=== PATIENT | male | born 1955 | race Caucasian/White ===

== ENCOUNTER 2018-02-16 14:04 | Inpatient (IN) | payer MEDICAID, OTHER ==
[~2018-02-16] VITALS: Ht 165.1 cm; Wt 73.0 kg
[2018-02-16 14:50] VITALS: BP 150/79; PULSE 66; RESP 16; TEMP 97.9; O2SAT 100
[2018-02-16] MEDS ORDERED: SODIUM CHLOR 0.9% 1000 ML INJ 1,000 ML IV ONE (15:00)
[2018-02-16 15:14] LABS: AUTOMATED NEUTROPHIL # 3.5 TH/MM3 (1.8-7.7); BASOPHIL % 0.8 % (0.0-2.0); EOSINOPHIL % 0.8 % (0.0-4.0); HEMATOCRIT 40.3 % (39.0-51.0); HEMOGLOBIN 13.8 GM/DL (13.0-17.0); LYMPH % 27.2 % (9.0-44.0); LYMPHOCYTE # 1.5 TH/MM3 (1.0-4.8); MEAN CORPUSCULAR HEMOGLOBIN 30.8 PG (27.0-34.0); MEAN CORPUSCULAR HGB CONC 34.3 % (32.0-36.0); MEAN PLATELET VOLUME 10.3 FL (7.0-11.0); MONO % 7.3 % (0.0-8.0); MONOCYTE # 0.4 TH/MM3 (0-0.9); NEUT % 63.9 % (16.0-70.0); PLATELET COUNT 181 TH/MM3 (150-450); RED BLOOD COUNT 4.48 MIL/MM3 (4.50-5.90); RED CELL DISTRIBUTION WIDTH 12.8 % (11.6-17.2); WHITE BLOOD COUNT 5.5 TH/MM3 (4.0-11.0)
[2018-02-16 15:38] LABS: PROTHROMBIN TIME - PATIENT 29.8 SEC (9.8-11.6)
[2018-02-16 15:53] LABS: BICARBONATE 24.1 MEQ/L (21.0-32.0); CREATININE 0.83 MG/DL (0.60-1.30)
[2018-02-16 16:11] LABS: TOTAL PROTEIN 6.5 GM/DL (6.4-8.2)
[2018-02-16 16:19] LABS: CALCIUM-PROTEIN CORRECTED 7.3 MG/DL (8.5-10.1)
[2018-02-16 16:55] VITALS: BP 158/81; PULSE 71; RESP 16; O2SAT 99
--- NOTE | 2018-02-16 16:58 | PD ---
HPI Chief Complaint: Syncope/Near-Syncope Time Seen by Provider: 14:24 Travel History International Travel<30 days: No Contact w/Intl Traveler<30days: No Traveled to known affect area: No History of Present Illness HPI This is a 63-year-old male with a history of mitral valve replacement, who presents via EMS after having a syncopal episode. Patient states that he has been taking extra magnesium supplements over the last several days. He states however while he has been taking magnesium he has noticed his blood sugars dropping. He denies being on any blood sugar medicine. He states that he was supplementing his low blood sugars with honey and juice. The patient states that while he was at the [facility] he started feeling extremely weak and then he passed out. There are no other complaints at time of my examination. [facility] Past Medical History Cardiac Catheterization: Yes Past Surgical History Coronary Artery Bypass Graft: Yes Genitourinary Surgery: Yes (TESTICAL SURGERY) Tonsillectomy: Yes Valve Replacement: Yes (MITRAL VALVE PROLASPE) Other Surgery: Yes (NASAL SURGERY ) Social History Alcohol Use: No Tobacco Use: No Substance Use: No Allergies-Medications (Allergen,Severity, Reaction): Coded Allergies: No Known Allergies (Unverified , 02/16/18) Review of Systems Except as stated in HPI: all other systems reviewed are Neg General / Constitutional: No: Fever, Chills Eyes: No: Diploplia, Photophobia HENT: No: Headaches, Neck Pain Cardiovascular: No: Chest Pain or Discomfort, Palpitations Respiratory: No: Cough, Shortness of Breath Gastrointestinal: No: Nausea, Vomiting Genitourinary: No: Dysuria, Decreased Urinary Output Musculoskeletal: Positive: Weakness (Generalized), No: Pain Neurologic: Positive: Weakness (Earlier), Dizziness, Syncope, No: Headache, Change in Mentation, Incontinence Physical Exam Narrative GENERAL: Well-developed well-nourished male in no acute respiratory distress. SKIN: Focused skin assessment warm/dry. HEAD: Atraumatic. Normocephalic. EYES: Pupils equal and round. No scleral icterus. No injection or drainage. ENT: No nasal bleeding or discharge. Mucous membranes pink and moist. NECK: Trachea midline. Supple. CARDIOVASCULAR: Regular rate and rhythm. Audible mechanical click appreciated. Patient does have a mechanical valve. RESPIRATORY: No accessory muscle use. Clear to auscultation. Breath sounds equal bilaterally. GASTROINTESTINAL: Abdomen soft, non-tender, nondistended. Hepatic and splenic margins not palpable. MUSCULOSKELETAL: No obvious deformities. No clubbing. No cyanosis. No edema. NEUROLOGICAL: Awake and alert. No obvious cranial nerve deficits. Motor grossly within normal limits. Normal speech. Data Data Last Documented VS Vital Signs Date Time Temp Pulse Resp B/P (MAP) Pulse Ox O2 Delivery O2 Flow Rate FiO2 02/16/18 16:55 71 16 158/81 (106) 99 Room Air 02/16/18 14:50 97.9 Orders Orders Electrocardiogram (02/16/18 14:24) Complete Blood Count With Diff (02/16/18 14:24) Basic Metabolic Panel (Bmp) (02/16/18 14:24) Prothrombin Time / Inr (Pt) (02/16/18 14:24) Sodium Chlor 0.9% 1000 Ml Inj (Ns 1000 M (02/16/18 15:00) Protein Corrected Calcium(Pcc) (02/16/18 14:50) Diet Regular Basic (02/16/18 Dinner) D5-1/2 Ns + Kcl 20 Meq Inj (D5-1/2 Ns + (02/16/18 17:00) Calcium Chloride Inj (Calcium Chloride I (02/16/18 17:00) Labs Laboratory Tests Test 02/16/18 14:50 White Blood Count 5.5 TH/MM3 Red Blood Count 4.48 MIL/MM3 Hemoglobin 13.8 GM/DL Hematocrit 40.3 % Mean Corpuscular Volume 90.0 FL Mean Corpuscular Hemoglobin 30.8 PG Mean Corpuscular Hemoglobin Concent 34.3 % Red Cell Distribution Width 12.8 % Platelet Count 181 TH/MM3 Mean Platelet Volume 10.3 FL Neutrophils (%) (Auto) 63.9 % Lymphocytes (%) (Auto) 27.2 % Monocytes (%) (Auto) 7.3 % Eosinophils (%) (Auto) 0.8 % Basophils (%) (Auto) 0.8 % Neutrophils # (Auto) 3.5 TH/MM3 Lymphocytes # (Auto) 1.5 TH/MM3 Monocytes # (Auto) 0.4 TH/MM3 Eosinophils # (Auto) 0.0 TH/MM3 Basophils # (Auto) 0.0 TH/MM3 CBC Comment DIFF FINAL Differential Comment Prothrombin Time 29.8 SEC Prothromb Time International Ratio 3.0 RATIO Blood Urea Nitrogen 14 MG/DL Creatinine 0.83 MG/DL Random Glucose 68 MG/DL Total Protein 6.5 GM/DL Calcium Level 7.0 MG/DL Sodium Level 139 MEQ/L Potassium Level 4.6 MEQ/L Chloride Level 108 MEQ/L Carbon Dioxide Level 24.1 MEQ/L Anion Gap 7 MEQ/L Estimat Glomerular Filtration Rate 94 ML/MIN Protein Corrected Calcium 7.3 MG/DL MDM Medical Decision Making Medical Screen Exam Complete: Yes Emergency Medical Condition: Yes Differential Diagnosis Vasovagal syncope versus neurogenic syncope versus cardiac syncope versus metabolic derangement Narrative Course 63-year-old male presents after having a syncopal episode at [facility]. The patient has been taking magnesium supplementation. Patient is also noted he has had multiple hypoglycemic episodes. Patient is not on any diabetic medication. His calcium was noted to be 7.3. Calcium can be lowered by taking magnesium supplementation. He is currently getting 1 g of calcium chloride. Patient is also been placed on a D5 drip for his recurrent hypoglycemia. [facility] Patient will be a full admit given his dextrose drip and IV calcium replacement. Diagnosis Primary Impression: Syncopal episode Additional Impressions: Hypocalcemia Recurrent hypoglycemia History of mechanical mitral valve Anticoagulated Admitting Information Admitting Physician Requests: Admit Randall Davidson MD Feb 16, 2018 16:58
[2018-02-16] MEDS ORDERED: SODIUM CHLORIDE 0.9% FLUSH 10 ML FLUSH IV FLUSH PRN (17:00)
[2018-02-16] MEDS ORDERED: NALOXONE HCL 0.4 MG/ML AMP IV PUSH PRN (17:00)
[2018-02-16] MEDS ORDERED: MAGNESIUM HYDROXIDE SUSP 30 ML CUP PO PRN (17:00)
[2018-02-16] MEDS ORDERED: BISACODYL 10 MG SUPP RECTAL PRN (17:00)
[2018-02-16] MEDS ORDERED: ONDANSETRON HCL 4 MG/2 ML VIAL IVP PRN (17:00)
[2018-02-16] MEDS ORDERED: CALCIUM CHLORIDE INJ 1 GM in DEXTROSE 5% IN WATER 100ML INJ 100 ML IV ONE ×2 (17:00)
[2018-02-16] MEDS ORDERED: LACTULOSE SYRUP 20 GM/30 ML CUP PO PRN (17:00)
[2018-02-16] MEDS ORDERED: SENNOSIDES 8.6 MG TAB PO PRN (17:00)
--- NOTE | 2018-02-16 17:37 | EKG ---
Date Performed: 02/16/2018 Time Performed: 15:36:03 PTAGE: 63 years EKG: Sinus rhythm WITH FIRST DEGREE AV BLOCK ABNORMAL ECG NO PREVIOUS TRACING DOCTOR: Raciel Stewart Interpretating Date/Time 02/16/2018 17:34:42
[2018-02-16] MEDS: D5-1/2 NS + KCL 20 MEQ INJ 1,000 ML IV SCH (18:18)
[2018-02-16] MEDS ORDERED: COUM3TAB PO (18:19)
[2018-02-16 18:20] VITALS: BP 138/72; PULSE 81; RESP 16; O2SAT 100
[2018-02-16] MEDS ORDERED: ATOR10TA15 PO (18:58)
[2018-02-16] MEDS ORDERED: MILK140C (18:58)
[2018-02-16] MEDS ORDERED: KRIL500C2 (18:58)
[2018-02-16 20:00] VITALS: PULSE 78
[2018-02-16 20:23] LABS: MAGNESIUM 1.6 MG/DL (1.5-2.5)
[2018-02-16] MEDS: SODIUM CHLORIDE 0.9% FLUSH 10 ML FLUSH IV FLUSH SCH (21:00)
[2018-02-16 21:30] VITALS: BP 120/80; PULSE 68; RESP 17; TEMP 98; O2SAT 97
--- NOTE | 2018-02-16 23:53 | HHI.HP ---
HPI Service [facility] Primary Care Physician Non-Staff Admission Diagnosis syncope, hypocalcemia, recurrent hypoglycemia, mechanical heart valv Diagnoses: Travel History International Travel<30 Days: No Contact w/Intl Traveler <30 Da: No Traveled to Known Affected Are: No History of Present Illness 63-year-old male with a history of coronary artery disease status post CABG 2, mitral valve replacement, prediabetes who presents with presyncopal episode. He says he has been taking milk thistle supplement over the last several days, as well as magnesium over the last several days to help with sleep. notes over the past several days feeling more tired, with nausea, decreased appetite. He does check his sugars at home despite not being on insulin. and has noted hypoglycemic episodes over the past day, with sugars down to the 40s this morning. He reports blurry vision when his sugars go down. He is still cold over the past 2 days, however denies any fevers, chills. He denies any orthostatic lightheadedness, and reports that blurry vision resolves when he brings his blood sugar up with honey. Review of Systems Except as stated in HPI: all other systems reviewed are Neg Past Family Social History Past Medical History History of mechanical aortic valve replacement 1 year ago. Patient reports history of prediabetes History of CAD with CABG 2 Past Surgical History CABG 2 Mitral valve replacement in March of last year. Performed an [facility] Reported Medications Warfarin 3 mg daily Atorvastatin 10 mg daily Allergies: Coded Allergies: No Known Allergies (Unverified , 02/16/18) Family History Father with valve replacement. Mother in her 80s secondary to heart disease Social History Nonsmoker. Nondrinker. Denies illicit drugs Physical Exam Vital Signs Vital Signs Date Time Temp Pulse Resp B/P (MAP) Pulse Ox O2 Delivery O2 Flow Rate FiO2 02/16/18 21:30 98.0 68 17 120/80 (93) 97 02/16/18 18:34 02/16/18 18:20 81 16 138/72 (94) 100 Room Air 02/16/18 16:55 71 16 158/81 (106) 99 Room Air 02/16/18 14:50 97.9 66 16 150/79 (102) 100 Physical Exam GENERAL: This is a well-nourished, well-developed patient, in no apparent distress.alert and oriented x4 SKIN: No rashes, ecchymoses or lesions. Cool and dry. HEAD: Atraumatic. Normocephalic. No temporal or scalp tenderness. EYES: Pupils equal round and reactive. Extraocular motions intact. No scleral icterus. No injection or drainage. ENT: Nose without bleeding, purulent drainage or septal hematoma. Throat without erythema, tonsillar hypertrophy or exudate. Uvula midline. Airway patent. NECK: Trachea midline. No JVD or lymphadenopathy. Supple, nontender, no meningeal signs. CARDIOVASCULAR: Regular rate and rhythm without murmurs, gallops, or rubs. RESPIRATORY: Clear to auscultation. Breath sounds equal bilaterally. No wheezes , rales, or rhonchi. GASTROINTESTINAL: Abdomen soft, non-tender, nondistended. No hepato-splenomegaly , or palpable masses. No guarding. MUSCULOSKELETAL: Extremities without clubbing, cyanosis, or edema. No joint tenderness, effusion, or edema noted. No calf tenderness. Negative Homans sign bilaterally. NEUROLOGICAL: Awake and alert. Cranial nerves II through XII intact. Motor and sensory grossly within normal limits. Five out of 5 muscle strength in all muscle groups. Normal speech. Laboratory Laboratory Tests Test 02/16/18 14:50 02/16/18 18:50 02/16/18 21:32 White Blood Count 5.5 Red Blood Count 4.48 Hemoglobin 13.8 Hematocrit 40.3 Mean Corpuscular Volume 90.0 Mean Corpuscular Hemoglobin 30.8 Mean Corpuscular Hemoglobin Concent 34.3 Red Cell Distribution Width 12.8 Platelet Count 181 Mean Platelet Volume 10.3 Neutrophils (%) (Auto) 63.9 Lymphocytes (%) (Auto) 27.2 Monocytes (%) (Auto) 7.3 Eosinophils (%) (Auto) 0.8 Basophils (%) (Auto) 0.8 Neutrophils # (Auto) 3.5 Lymphocytes # (Auto) 1.5 Monocytes # (Auto) 0.4 Eosinophils # (Auto) 0.0 Basophils # (Auto) 0.0 CBC Comment DIFF FINAL Differential Comment Prothrombin Time 29.8 Prothromb Time International Ratio 3.0 Blood Urea Nitrogen 14 Creatinine 0.83 Random Glucose 68 Total Protein 6.5 Calcium Level 7.0 Sodium Level 139 Potassium Level 4.6 Chloride Level 108 Carbon Dioxide Level 24.1 Anion Gap 7 Estimat Glomerular Filtration Rate 94 Protein Corrected Calcium 7.3 Magnesium Level 1.6 Urine Opiates Screen NEG Urine Barbiturates Screen NEG Urine Amphetamines Screen NEG Urine Benzodiazepines Screen NEG Urine Cocaine Screen NEG Urine Cannabinoids Screen NEG Result Diagram: 02/16/18 1450 02/16/18 1450 Caprini VTE Risk Assessment Caprini VTE Risk Assessment: Mod/High Risk (score >= 2) Caprini Risk Assessment Model Point Value = 1 Point Value = 2 Point Value = 3 Point Value = 5 Age 41-60 Minor surgery BMI > 25 kg/m2 Swollen legs Varicose veins or History of unexplained or recurrent spontaneous Oral contraceptives or hormone replacement Sepsis (< 1 month) Serious lung disease, including pneumonia (< 1 month) Abnormal pulmonary function Acute myocardial infarction Congestive heart failure (< 1 month) History of inflammatory bowel disease Medical patient at bed rest Age 61-74 Arthroscopic surgery Major open surgery (> 45 min) Laparoscopic surgery (> 45 min) Malignancy Confined to bed (> 72 hours) Immobilizing plaster cast Central venous access Age >= 75 History of VTE Family history of VTE Factor V Leiden Prothrombin [id number] Lupus anticoagulant Anticardiolipin antibodies Elevated serum homocysteine Heparin-induced thrombocytopenia Other congenital or acquired thrombophilia Stroke (< 1 month) Elective arthroplasty Hip, pelvis, or leg fracture Acute spinal cord injury (< 1 month) Prophylaxis Regimen Total Risk Factor Score Risk Level Prophylaxis Regimen 0-1 Low Early ambulation 2 Moderate Order ONE of the following: *Sequential Compression Device (SCD) *Heparin 5000 units SQ BID 3-4 Higher Order ONE of the following medications: *Heparin 5000 units SQ TID *Enoxaparin/Lovenox 40 mg SQ daily (WT < 150 kg, CrCl > 30 mL/min) *Enoxaparin/Lovenox 30 mg SQ daily (WT < 150 kg, CrCl > 10-29 mL/min) *Enoxaparin/Lovenox 30 mg SQ BID (WT < 150 kg, CrCl > 30 mL/min) AND/OR *Sequential Compression Device (SCD) 5 or more Highest Order ONE of the following medications: *Heparin 5000 units SQ TID (Preferred with Epidurals) *Enoxaparin/Lovenox 40 mg SQ daily (WT < 150 kg, CrCl > 30 mL/min) *Enoxaparin/Lovenox 30 mg SQ daily (WT < 150 kg, CrCl > 10-29 mL/min) *Enoxaparin/Lovenox 30 mg SQ BID (WT < 150 kg, CrCl > 30 mL/min) AND *Sequential Compression Device (SCD) Assessment and Plan Assessment and Plan //Hypoglycemia //Reported history of prediabetes Hypoglycemia in the 40s reported at home. Blurry vision related to hypoglycemia. = Uncertain etiology. Patient reports being prediabetic, however not on insulin. Has been checking blood sugars at home. Suspect possibly secondary to liver disease. LFTs are ordered and pending. Multiple supplements at home. Would recommend cessation. = Sulfonylurea level was not available here. We will consult endocrinology. Start on IV fluids with D5. //Hypocalcemia -Calcium 7.0 on admission. Possibly related to syncope. Possibly caused by magnesium supplementation. //preSyncope = Patient without any chest pain, however does have history of mechanical aortic valve. = Is likely related to hypoglycemia, dehydration from nausea and decreased appetite. Orthostatic vital signs = We'll check chest x-ray, carotids, echocardiogram, troponin. Place on telemetry. //History of mechanical mitral valve. //CAD = Uncertain why patient is not on aspirin. We'll discuss with patient. -On warfarin. Consult pharmacy for management. INR is 3.0. Continue to monitor. //Loose bowel movements without abdominal pain = Likely secondary to magnesium supplementation. No abdominal pain. Hyperlipidemia. Chronic. Continue statin. Discussed Condition With patient, nurse, ED physician Physician Certification 2 Midnight Certification Type: Admission for Inpatient Services Order for Inpatient Services The services are ordered in accordance with Medicare regulations or non- Medicare payer requirements, as applicable. In the case of services not specified as inpatient-only, they are appropriately provided as inpatient services in accordance with the 2-midnight benchmark. Estimated LOS (days): 2 days is the estimated time the patient will need to remain in the hospital, assuming treatment plan goals are met and no additional complications. Post-Hospital Plan: Not yet determined Diallo Dias MD Feb 16, 2018 23:53
[2018-02-17] VITALS (8 sets, daily range): BP systolic 126–144; BP diastolic 68–89; PULSE 63–83; RESP 16–18; TEMP 97–98.1; O2SAT 94–99
--- NOTE | 2018-02-17 00:24 | RADRPT ---
EXAM DATE/TIME: 02/16/2018 23:52 [facility] COMPARISON: No previous studies available for comparison. INDICATIONS : Short of breath. MEDICAL HISTORY : None. SURGICAL HISTORY : CABG. ENCOUNTER: Initial ACUITY: 1 day PAIN SCORE: 0/10 LOCATION: Bilateral chest FINDINGS: A single view of the chest demonstrates the lungs to be symmetrically aerated without evidence of mas s, infiltrate or effusion. Surgical changes with findings of a valvular prostheses. Heart size is upp er limits of normal. Osseous structures are intact. CONCLUSION: No acute cardiopulmonary process. Walter Wood MD on February 17, 2018 at 0:22 Board Certified Radiologist. This report was verified electronically.
[2018-02-17 00:43] LABS: ALKALINE PHOSPHATASE 47 U/L (45-117); TOTAL BILIRUBIN ADULT 0.4 MG/DL (0.2-1.0); TOTAL PROTEIN 6.5 GM/DL (6.4-8.2); TROPONIN I LESS THAN 0.02 NG/ML (0.02-0.05)
[2018-02-17 00:50] LABS: ALBUMIN 3.2 GM/DL (3.4-5.0); ALT (GPT) 31 U/L (12-78); AST (GOT) 82 U/L (15-37); DIRECT BILIRUBIN ADULT LESS THAN 0.1 MG/DL (0.0-0.2); INDIRECT BILIRUBIN 0.3 MG/DL (0.0-0.8)
[2018-02-17] MEDS: D5-1/2 NS + KCL 20 MEQ INJ 1,000 ML IV SCH ×2 (04:19→13:01)
[2018-02-17] MEDS: SODIUM CHLORIDE 0.9% FLUSH 10 ML FLUSH IV FLUSH SCH (07:42)
[2018-02-17 07:51] LABS: INTERNATIONAL NORMALIZED RATIO 2.9 RATIO; PROTHROMBIN TIME - PATIENT 28.8 SEC (9.8-11.6)
[2018-02-17 07:53] LABS: AUTOMATED NEUTROPHIL # 2.7 TH/MM3 (1.8-7.7); BASOPHIL # 0.1 TH/MM3 (0-0.2); EOSINOPHIL # 0.1 TH/MM3 (0-0.4); EOSINOPHIL % 1.7 % (0.0-4.0); HEMATOCRIT 39.6 % (39.0-51.0); HEMOGLOBIN 13.5 GM/DL (13.0-17.0); LYMPH % 38.3 % (9.0-44.0); MEAN CELL VOLUME 90.3 FL (80.0-100.0); MEAN CORPUSCULAR HEMOGLOBIN 30.8 PG (27.0-34.0); MEAN CORPUSCULAR HGB CONC 34.1 % (32.0-36.0); MEAN PLATELET VOLUME 9.5 FL (7.0-11.0); MONO % 8.8 % (0.0-8.0); MONOCYTE # 0.5 TH/MM3 (0-0.9); NEUT % 50.2 % (16.0-70.0); PLATELET COUNT 155 TH/MM3 (150-450); RED BLOOD COUNT 4.39 MIL/MM3 (4.50-5.90); RED CELL DISTRIBUTION WIDTH 12.7 % (11.6-17.2); WHITE BLOOD COUNT 5.3 TH/MM3 (4.0-11.0)
[2018-02-17 08:15] LABS: ALBUMIN 3.6 GM/DL (3.4-5.0); ALKALINE PHOSPHATASE 62 U/L (45-117); ALT (GPT) 28 U/L (12-78); AST (GOT) 21 U/L (15-37); BICARBONATE 26.6 MEQ/L (21.0-32.0); BLOOD UREA NITROGEN 10 MG/DL (7-18); CALCIUM 8.9 MG/DL (8.5-10.1); CHLORIDE 107 MEQ/L (98-107); CREATININE 0.88 MG/DL (0.60-1.30); GLOMERULAR FILTRATION RATE 88 ML/MIN (>89); GLUCOSE,RANDOM 125 MG/DL (74-106); SODIUM (NA) 142 MEQ/L (136-145); TOTAL BILIRUBIN ADULT 0.4 MG/DL (0.2-1.0); TOTAL PROTEIN 6.6 GM/DL (6.4-8.2)
--- NOTE | 2018-02-17 12:25 | RADRPT ---
EXAM DATE/TIME: 02/17/2018 11:25 [facility] COMPARISON: No previous studies available for comparison. INDICATIONS : Syncope. MEDICAL HISTORY : Coronary artery disease. Prediabetes. Mitral valve prolapse. SURGICAL HISTORY : CABG. Tonsillectomy. Mitral valve replacement. Testicular surgery. Nasal surgery. ENCOUNTER: Initial ACUITY: 2 days PAIN SCORE: 0/10 LOCATION: Bilateral neck PEAK SYSTOLIC VELOCITIES (cm/sec): ICA/CCA RATIO: Right: 1.1 Left: 1.4 ICA: Right: 83 Left: 84 CCA: Right: 76 Left: 62 ECA: Right: 83 Left: 80 VERTEBRAL: Right: 51 antegrade Left: 38 antegrade Elevated flow velocities and ICA/CCA ratios have been found to correlate with increased degrees of vessel stenosis, calculated as percentage of diameter relative to a normal segment of distal ICA/CCA FINDINGS: RIGHT CAROTID: Moderate plaque formation in the region of the carotid bulb.. The waveforms are within normal limits . LEFT CAROTID: Mild plaque formation in the carotid bulb. No significant stenosis is visualized. The waveforms are within normal limits. VERTEBRAL ARTERIES: Antegrade flow is seen in both vertebral arteries. MISCELLANEOUS: None. CONCLUSION: Bilateral carotid plaque with hemodynamic profile characteristic of less than 50% stenosis. Rishabh Garcia MD on February 17, 2018 at 12:22 Board Certified Radiologist. This report was verified electronically.
[2018-02-17] MEDS ORDERED: WARFARIN SOD 1 MG TAB PO SCH (16:00)
[2018-02-17] MEDS ORDERED: WARFARIN SOD 2.5 MG TAB PO SCH (16:00)
--- NOTE | 2018-02-17 16:13 | ECHRPT ---
Indication: SYNCOPE CONCLUSIONS Normal left ventricular size. Wall thickness is normal. The left ventricular systolic function is normal with an estimated ejection fraction in the range of 55-60%. No regional wall motion abnormalities are present. The left atrial size is [id number] dilated. The right atrial size is mildly dilated. Normally functioning, well seated mechanical mitral valve prosthesis. There is mild tricuspid valve regurgitation. The estimated pulmonary arterial pressure is 31 mmHg. BP: 138 / 89 HR: 72 Rhythm: Sinus MEASUREMENTS (Male / Female) Normal Values Technical Quality:Fair 2D ECHO LV Diastolic Diameter PLAX 4.6 cm 4.2 - 5.9 / 3.9 - 5.3 cm LV Systolic Diameter PLAX 3.2 cm IVS Diastolic Thickness 1.1 cm 0.6 - 1.0 / 0.6 - 0.9 cm LVPW Diastolic Thickness 1.1 cm 0.6 - 1.0 / 0.6 - 0.9 cm LV Relative Wall Thickness 0.5 RV Internal Dim ED PLAX 3.2 cm LVOT Diameter 1.9 cm Aortic Root Diameter 3.2 cm LA Systolic Diameter LX 4.4 cm 3.0 - 4.0 / 2.7 - 3.8 cm M-MODE AV Cusp Separation MM 1.7 cm DOPPLER AV Peak Velocity 114.0 cm/s AV Peak Gradient 5.2 mmHg AV Mean Gradient 3.0 mmHg AV Velocity Time Integral 21.4 cm LVOT Peak Velocity 97.8 cm/s LVOT Peak Gradient 3.8 mmHg LVOT Velocity Time Integral 15.6 cm AV Area Cont Eq vti 2.1 cm AV Area Cont Eq pk 2.4 cm MV Peak Velocity 162.2 cm/s MV Peak Gradient 10.5 mmHg MV Mean Velocity 112.3 cm/s MV Mean Gradient 5.4 mmHg Mitral E Point Velocity 152.5 cm/s LV E' Lateral Velocity 12.5 cm/s Mitral E to LV E' Lateral Ratio 12.2 LV E' Septal Velocity 6.8 cm/s Mitral E to LV E' Septal Ratio 22.4 TR Peak Velocity 231.0 cm/s TR Peak Gradient 21.3 mmHg Right Atrial Pressure 10.0 mmHg Pulmonary Artery Systolic Pressu 31.3 mmHg Right Ventricular Systolic Press 31.3 mmHg FINDINGS LEFT VENTRICLE Normal left ventricular size. Wall thickness is normal. The left ventricular systolic function is normal with an estimated ejection fraction in the range of 55-60%. No regional wall motion abnormalities are present. RIGHT VENTRICLE Normal right ventricular size and systolic function. LEFT ATRIUM The left atrial size is [id number] dilated. RIGHT ATRIUM The right atrial size is mildly dilated. ATRIAL SEPTUM The interatrial septum not well visualized. AORTA The aortic root and proximal ascending aorta are normal in size on limited imaging. MITRAL VALVE Normally functioning, well seated mechanical mitral valve prosthesis. AORTIC VALVE Trileaflet aortic valve. No aortic valve stenosis or regurgitation. TRICUSPID VALVE There is mild tricuspid valve regurgitation. The estimated pulmonary arterial pressure is 31 mmHg. PULMONARY VALVE Mild pulmonary valve regurgitation. VESSELS The inferior vena cava is normal in size. PERICARDIUM No pericardial effusion. Hugo Montoya MD (Electronically Signed) Final Date:17 Feb 2018 16:12
[2018-02-17 16:49] LABS: HEMOGLOBIN A1C 5.8 % (4.3-6.0)
--- NOTE | 2018-02-17 18:30 | HHI.DS ---
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 He says he has been taking milk thistle supplement over the last several days, as well as magnesium over the last several days to help with sleep. notes over the past several days feeling more tired, with nausea, decreased appetite. He does check his sugars at home despite not being on insulin. and has noted hypoglycemic episodes over the past day, with sugars down to the 40s this morning. He reports blurry vision when his sugars go down. He is still cold over the past 2 days, however denies any fevers, chills. He denies any orthostatic lightheadedness, and reports that blurry vision resolves when he brings his blood sugar up with honey. CBC/BMP: 02/17/18 0704 02/17/18 0704 Significant Findings Laboratory Tests Test 02/16/18 14:50 02/16/18 18:50 02/16/18 21:32 02/17/18 07:04 Red Blood Count 4.48 MIL/MM3 (4.50-5.90) 4.39 MIL/MM3 (4.50-5.90) Prothrombin Time 29.8 SEC (9.8-11.6) 28.8 SEC (9.8-11.6) Random Glucose 68 MG/DL (74-106) 125 MG/DL (74-106) Calcium Level 7.0 MG/DL (8.5-10.1) Chloride Level 108 MEQ/L (98-107) Protein Corrected Calcium 7.3 MG/DL (8.5-10.1) Aspartate Amino Transf (AST/SGOT) 82 U/L (15-37) Troponin I LESS THAN 0.02 NG/ML Albumin 3.3 GM/DL (3.4-5.0) Monocytes (%) (Auto) 8.8 % (0.0-8.0) Estimat Glomerular Filtration Rate 88 ML/MIN (>89) 25-Hydroxy Vitamin D Total 16.9 ng/ML (30-100) Hospital Course Mr. Caraballo is a 63-year-old male. He is admitted secondary to a presyncopal/ syncopal episode. Etiology is likely related to hypoglycemia. He has no previous history of hypoglycemia. He does report that he did not eat breakfast. He has been taking some supplements of magnesium and milk thistle. This could represent a glycogen deficit. He is treated with IV fluids with dextrose overnight and through noon. This is discontinued at noon. His blood sugars show stability after 3-4 hours. Carotid ultrasound shows no obstruction. Echocardiogram is obtained and results pending. He is medically cleared for discharge home today. Blood sugars stable at time of discharge. Pt Condition on Discharge: Stable Discharge Disposition: Discharge Home Discharge Time: <= 30 minutes Discharge Instructions DIET: Follow Instructions for: As Tolerated, No Restrictions Activities you can perform: Regular-No Restrictions Follow up Referrals: PCP Follow-up - 2 Weeks Continued Medications: Atorvastatin (Atorvastatin) 10 Mg Tab 10 MG PO HS for Cholesterol Management, #30 TAB 0 Refills Krill Oil (Krill Oil) 500 Mg Capsule Milk Thistle (Milk Thistle) 140 Mg Cap Warfarin (Coumadin) 3 Mg Tab 3.5 MG PO DAILY for Prevent Blood Clot, #30 TAB 0 Refills Chnu Sun MD February 17, 2018 18:30
[2018-02-17] MEDS ORDERED: ATORVASTATIN 10 MG TAB PO SCH (21:00)
== END 2018-02-17 18:21 | disposition home or self-care (01) | DRG 641 ==
LOC: NEPC 14:04 → NEDH 17:09 → N05A 18:31
PROVIDERS: ADMIT Hospitalist; ATTEND Hospitalist
DX: E16.2 Hypoglycemia, unspecified (principal); E83.51 Hypocalcemia; E78.5 Hyperlipidemia, unspecified; R55 Syncope and collapse; I25.10 Atherosclerotic heart disease of native coronary artery without angina pectoris; Z95.2 Presence of prosthetic heart valve; Z79.01 Long term (current) use of anticoagulants; Z79.899 Other long term (current) drug therapy; Z95.1 Presence of aortocoronary bypass graft
CPT/HCPCS: 71045; 80048; 80053; 80076; 80307; 82040; 82306; 82652; 82948; 83036; 83525; 83735; 84155; 84443; 84484; 85025; 85610; 93005; 93306; 93880; 96360; 96361; J3480; J7030

== ENCOUNTER 2018-02-17 19:02 | Emergency (ER) | payer MEDICAID ==
[~2018-02-17] VITALS: Ht 165.1 cm; Wt 72.0 kg
[~2018-02-17 19:02] MED LIST: ATOR10TA15 PO; COUM3TAB PO; KRIL500C2; MILK140C
[2018-02-17 19:15] VITALS: BP 168/84; PULSE 86; RESP 16; TEMP 97.6; O2SAT 100
--- NOTE | 2018-02-17 19:59 | PD ---
HPI Chief Complaint: Diabetic Time Seen by Provider: 19:26 Travel History International Travel<30 days: No Contact w/Intl Traveler<30days: No Traveled to known affect area: No History of Present Illness HPI Patient is a 63-year-old male presenting to emergency department for evaluation of hypoglycemia. Patient states he was just discharged from the hospital today and would like to be readmitted because he felt lightheaded, checked his blood sugar and reported it was 70 at home. This was 1 hour after he ate a meal consisting of potatoes and a grilled cheese sandwich. Patient denies any chest pain, shortness of breath, headache, visual changes, diaphoresis, nausea. Patient states for the last 2 days he has had fluctuations in his blood sugar, he states when he wakes up it is in the 40s. He is concerned that this will happen again and wants to be readmitted to the hospital. Symptom onset is unknown, symptoms are mild in nature. PFSH Past Medical History Cardiac Catheterization: Yes Cardiovascular Problems: Yes Endocrine: Yes Tetanus Vaccination: Unknown Influenza Vaccination: No Past Surgical History Cardiac Surgery: Yes (Mitral valve replacement, CABG x 2) Coronary Artery Bypass Graft: Yes Genitourinary Surgery: Yes (TESTICAL SURGERY) Tonsillectomy: Yes Valve Replacement: Yes (MITRAL VALVE PROLASPE) Other Surgery: Yes (NASAL SURGERY ) Social History Alcohol Use: No Tobacco Use: No Substance Use: No Allergies-Medications (Allergen,Severity, Reaction): Coded Allergies: No Known Allergies (Unverified , 02/17/18) Reported Meds & Prescriptions Reported Meds & Active Scripts Active Reported Milk Thistle 140 Mg Cap Krill Oil 500 Mg Capsule Atorvastatin (Atorvastatin Calcium) 10 Mg Tab 10 Mg PO HS Coumadin (Warfarin) 3 Mg Tab 3.5 Mg PO DAILY Review of Systems Except as stated in HPI: all other systems reviewed are Neg HENT: Positive: Lightheadedness Physical Exam Narrative GENERAL: Well-developed, well-nourished alert male. Presenting in no acute distress. SKIN: Warm and dry. HEAD: Atraumatic. Normocephalic. EYES: Pupils equal and round. No scleral icterus. No injection or drainage. ENT: No nasal bleeding or discharge. Mucous membranes pink and moist. NECK: Trachea midline. No JVD. CARDIOVASCULAR: Regular rate and rhythm. RESPIRATORY: No accessory muscle use. Clear to auscultation. Breath sounds equal bilaterally. GASTROINTESTINAL: Abdomen soft, non-tender, nondistended. Hepatic and splenic margins not palpable. MUSCULOSKELETAL: Extremities without clubbing, cyanosis, or edema. No obvious deformities. NEUROLOGICAL: Awake and alert. No obvious cranial nerve deficits. Motor grossly within normal limits. Five out of 5 muscle strength in the arms and legs. Normal speech. PSYCHIATRIC: Appropriate mood and affect; insight and judgment normal. Data Data Last Documented VS Vital Signs Date Time Temp Pulse Resp B/P (MAP) Pulse Ox O2 Delivery O2 Flow Rate FiO2 02/17/18 19:15 97.6 86 16 168/84 (112) 100 [facility] Medical Decision Making Medical Screen Exam Complete: Yes Emergency Medical Condition: Yes Medical Record Reviewed: Yes Interpretation(s) Vital Signs Date Time Temp Pulse Resp B/P (MAP) Pulse Ox O2 Delivery O2 Flow Rate FiO2 02/17/18 19:15 97.6 86 16 168/84 (112) 100 Differential Diagnosis Hypoglycemia versus anxiety versus normal examination versus other Narrative Course Patient is a well-appearing 63-year-old male presenting for evaluation of self- reported hypoglycemic episode this afternoon. Patient's vital signs are stable , medical records reviewed. He was admitted for near syncope yesterday and discharged home today. Patient appears anxious regarding his blood sugars. He appears compulsive in regards to assessing his blood sugars at home. Additionally patient is a vegetarian, his diet is high in carbohydrates. Patient was encouraged to incorporate more protein to avoid fluctuations in his blood sugars. This likely he is experiencing blood sugar spikes and then rapid decline. Upon review of past medical records from previous admission, patient' s orthostatic vital signs are negative. His albumin and vitamin D are low. Discussed with my attending, patient is advised to follow-up with his primary care doctor tomorrow. He was strongly encouraged to add more protein sources to his diet. Patient was encouraged to return to emergency department for any new or worsening symptoms. Patient stable for discharge. Diagnosis Primary Impression: Alteration in blood glucose level Additional Impressions: Hypoalbuminemia due to protein-calorie malnutrition Vitamin D deficiency Referrals: Primary Care Physician 1 day Patient Instructions: General Instructions, High Protein Diet (ED), Vitamin D Deficiency (ED) Additional Instructions: Follow-up with your primary doctor tomorrow Eat regular meals or snacks every 2-3 hours Increase protein intake Return to emergency department for any new or worsening symptoms Med/Other Pt SpecificInfo: No Change to Meds Disposition: 01 DISCHARGE HOME Condition: Stable Shelli Fernandez February 17, 2018 19:59
== END 2018-02-17 20:13 | disposition home or self-care (01) ==
LOC: NEPD 19:02
DX: E11.649 Type 2 diabetes mellitus with hypoglycemia without coma (principal); E88.09 Other disorders of plasma-protein metabolism, not elsewhere classified; E46 Unspecified protein-calorie malnutrition; E55.9 Vitamin D deficiency, unspecified
CPT/HCPCS: 99281

== ENCOUNTER 2018-03-11 12:25 | Emergency (ER) | payer MEDICAID ==
[~2018-03-11] VITALS: Ht 165.1 cm; Wt 70.0 kg
[2018-03-11 12:36] VITALS: BP 157/74; PULSE 72; RESP 16; TEMP 97.7; O2SAT 97
[2018-03-11 13:04] LABS: AUTOMATED NEUTROPHIL # 5.5 TH/MM3 (1.8-7.7); BASOPHIL % 0.7 % (0.0-2.0); EOSINOPHIL % 0.2 % (0.0-4.0); HEMATOCRIT 43.1 % (39.0-51.0); HEMOGLOBIN 14.5 GM/DL (13.0-17.0); LYMPHOCYTE # 1.2 TH/MM3 (1.0-4.8); MEAN CELL VOLUME 90.6 FL (80.0-100.0); MEAN CORPUSCULAR HEMOGLOBIN 30.5 PG (27.0-34.0); MEAN CORPUSCULAR HGB CONC 33.7 % (32.0-36.0); MEAN PLATELET VOLUME 9.5 FL (7.0-11.0); MONO % 4.8 % (0.0-8.0); MONOCYTE # 0.3 TH/MM3 (0-0.9); NEUT % 77.3 % (16.0-70.0); PLATELET COUNT 174 TH/MM3 (150-450); RED BLOOD COUNT 4.76 MIL/MM3 (4.50-5.90); RED CELL DISTRIBUTION WIDTH 12.5 % (11.6-17.2); WHITE BLOOD COUNT 7.1 TH/MM3 (4.0-11.0)
[2018-03-11 13:12] LABS: INTERNATIONAL NORMALIZED RATIO 2.8 RATIO; PROTHROMBIN TIME - PATIENT 27.8 SEC (9.8-11.6)
[2018-03-11 13:26] LABS: BICARBONATE 29.7 MEQ/L (21.0-32.0); CALCIUM 9.2 MG/DL (8.5-10.1); CREATININE 1.12 MG/DL (0.60-1.30)
[2018-03-11 13:57] VITALS: BP 135/75; PULSE 68; RESP 16; O2SAT 98
[2018-03-11 14:09] LABS: ALBUMIN 4.1 GM/DL (3.4-5.0); DIRECT BILIRUBIN ADULT 0.2 MG/DL (0.0-0.2)
[2018-03-11 14:10] LABS: INDIRECT BILIRUBIN 0.4 MG/DL (0.0-0.8); TOTAL BILIRUBIN ADULT 0.6 MG/DL (0.2-1.0); TOTAL PROTEIN 7.6 GM/DL (6.4-8.2)
--- NOTE | 2018-03-11 14:16 | PD ---
HPI Chief Complaint: Dizziness Time Seen by Provider: 12:31 Travel History International Travel<30 days: No Contact w/Intl Traveler<30days: No Traveled to known affect area: No History of Present Illness HPI 63-year-old male complains of dizziness. He was at the [facility] today. While he was undergoing blood work he felt dizzy and diaphoretic. He reports a foggy head. He describes no energy lately. He reports typically half of his day is good and the other half he feels tired. He has had no vomiting. No diarrhea. No fever. He was seen here about 3 weeks ago for similar complaints and a workup that point was unremarkable. He worries that he might be having an inappropriate amount of protein or a certain manufacture protein type that is not compatible with his metabolism. PFSH Past Medical History Cardiac Catheterization: Yes Cardiovascular Problems: Yes Diabetes: Yes (Prediabetes) Patient Takes Glucophage: No Endocrine: Yes Reproductive: Yes Past Surgical History Cardiac Surgery: Yes (Mitral valve replacement, CABG x 2) Coronary Artery Bypass Graft: Yes Genitourinary Surgery: Yes (TESTICAL SURGERY) Tonsillectomy: Yes Valve Replacement: Yes (MITRAL VALVE PROLASPE) Other Surgery: Yes (NASAL SURGERY ) Social History Alcohol Use: No Tobacco Use: No Substance Use: No Allergies-Medications (Allergen,Severity, Reaction): Coded Allergies: No Known Allergies (Unverified , 03/11/18) Reported Meds & Prescriptions Reported Meds & Active Scripts Active Reported Krill Oil 500 Mg Capsule Atorvastatin (Atorvastatin Calcium) 10 Mg Tab 10 Mg PO HS Coumadin (Warfarin) 3 Mg Tab 3.5 Mg PO DAILY Review of Systems Except as stated in HPI: all other systems reviewed are Neg General / Constitutional: No: Fever Physical Exam Narrative GENERAL: 63-year-old male well-nourished well-developed no acute distress Vital Signs Date Time Temp Pulse Resp B/P (MAP) Pulse Ox O2 Delivery O2 Flow Rate FiO2 03/11/18 13:57 68 16 135/75 (95) 98 Room Air 03/11/18 12:42 16 97 Room Air 03/11/18 12:36 97.7 72 16 157/74 (101) 97 SKIN: Warm and dry. HEAD: Atraumatic. Normocephalic. EYES: Pupils equal and round. No scleral icterus. No injection or drainage. ENT: No nasal bleeding or discharge. Mucous membranes pink and moist. NECK: Trachea midline. No JVD. CARDIOVASCULAR: Regular rate and rhythm. RESPIRATORY: No accessory muscle use. Clear to auscultation. Breath sounds equal bilaterally. GASTROINTESTINAL: Abdomen soft, non-tender, nondistended. Hepatic and splenic margins not palpable. MUSCULOSKELETAL: Extremities without clubbing, cyanosis, or edema. No obvious deformities. NEUROLOGICAL: Awake and alert. No obvious cranial nerve deficits. Motor grossly within normal limits. Five out of 5 muscle strength in the arms and legs. Normal speech. PSYCHIATRIC: Appropriate mood and affect; insight and judgment normal. Data Data Last Documented VS Vital Signs Date Time Temp Pulse Resp B/P (MAP) Pulse Ox O2 Delivery O2 Flow Rate FiO2 03/11/18 13:57 68 16 135/75 (95) 98 Room Air 03/11/18 12:36 97.7 Orders Orders Complete Blood Count With Diff (03/11/18 12:32) Basic Metabolic Panel (Bmp) (03/11/18 12:32) Coag Profile (03/11/18 12:46) Hepatic Functional Panel (03/11/18 13:20) Ed Discharge Order (03/11/18 14:16) Labs Laboratory Tests Test 03/11/18 12:45 White Blood Count 7.1 TH/MM3 Red Blood Count 4.76 MIL/MM3 Hemoglobin 14.5 GM/DL Hematocrit 43.1 % Mean Corpuscular Volume 90.6 FL Mean Corpuscular Hemoglobin 30.5 PG Mean Corpuscular Hemoglobin Concent 33.7 % Red Cell Distribution Width 12.5 % Platelet Count 174 TH/MM3 Mean Platelet Volume 9.5 FL Neutrophils (%) (Auto) 77.3 % Lymphocytes (%) (Auto) 17.0 % Monocytes (%) (Auto) 4.8 % Eosinophils (%) (Auto) 0.2 % Basophils (%) (Auto) 0.7 % Neutrophils # (Auto) 5.5 TH/MM3 Lymphocytes # (Auto) 1.2 TH/MM3 Monocytes # (Auto) 0.3 TH/MM3 Eosinophils # (Auto) 0.0 TH/MM3 Basophils # (Auto) 0.0 TH/MM3 CBC Comment DIFF FINAL Differential Comment Prothrombin Time 27.8 SEC Prothromb Time International Ratio 2.8 RATIO Activated Partial Thromboplast Time 37.2 SEC Blood Urea Nitrogen 15 MG/DL Creatinine 1.12 MG/DL Random Glucose 111 MG/DL Calcium Level 9.2 MG/DL Sodium Level 138 MEQ/L Potassium Level 3.7 MEQ/L Chloride Level 101 MEQ/L Carbon Dioxide Level 29.7 MEQ/L Anion Gap 7 MEQ/L Estimat Glomerular Filtration Rate 66 ML/MIN Total Bilirubin 0.6 MG/DL Direct Bilirubin 0.2 MG/DL Indirect Bilirubin 0.4 MG/DL Aspartate Amino Transf (AST/SGOT) 24 U/L Alanine Aminotransferase (ALT/SGPT) 26 U/L Alkaline Phosphatase 70 U/L Total Protein 7.6 GM/DL Albumin 4.1 GM/DL MDM Medical Decision Making Medical Screen Exam Complete: Yes Emergency Medical Condition: Yes Medical Record Reviewed: Yes Differential Diagnosis Arrhythmia, anemia, electrolyte imbalance Narrative Course The patient has a sinus rhythm at a rate of 81 PVC and a OH interval of just over 200 ms CBC & BMP Diagram 03/11/18 12:45 Calcium Level 9.2 LFTs are normal The patient is resting comfortably and feels better, is alert and in no distress. The patients results and examination findings were discussed. The repeat examination is unremarkable and benign. The history, exam, diagnostic testing, and current condition do not suggest any significant pathology to warrant further testing, continued ED treatment, admission, or surgical evaluation at this point. The vital signs have been stable. The patient does not have uncontrollable pain, intractable vomiting, or other significant symptoms. The patient's condition is stable and appropriate for discharge. The patient will pursue further outpatient evaluation with a primary care physician or other designated or consulting physician as indicated in the discharge instructions. The patient expressed understanding and was agreeable with this plan. Final notes Diagnosis Primary Impression: Dizziness Additional Impressions: Diaphoresis Near syncope Referrals: [facility] 2 days Med/Other Pt SpecificInfo: No Change to Meds Disposition: 01 DISCHARGE HOME Condition: Stable Chun Becerra MD March 11, 2018 14:16
== END 2018-03-11 15:02 | disposition home or self-care (01) ==
LOC: NEPD 12:25
DX: R42 Dizziness and giddiness (principal); R61 Generalized hyperhidrosis; R55 Syncope and collapse
CPT/HCPCS: 80048; 80076; 85025; 85610; 85730; 99283